=== PATIENT | male | born 1985 | race American Indian/Alaskan Native ===

== ENCOUNTER 2017-02-16 12:30 | Emergency (ER) | payer SELFPAY ==
--- NOTE | 2017-02-16 12:49 | Emergency Department Report ---
Chief Complaint: Pain General Stated Complaint: SICKLE CELL CRISIS Time Seen by Provider: 02/16/17 12:47 - HPI History of Present Illness: pt c/o sickle cell pain crisis. PT states he is from out of town and here for work training. pt states his pain feels like it usually does - ROS Review of Systems: - fever - chills - n/v - Exam Physical Exam: thin male, no acute distress steady gait MSE screening note: Focused history and physical exam performed. Due to findings the following was ordered: labs ED Disposition for MSE Condition: Stable
[2017-02-16 13:22] LABS: Hematocrit 41.5 % (35.5-45.6); Hemoglobin 13.9 gm/dl (11.8-15.2); Mean Corpuscular HGB Conc 33 % (32-34); Mean Corpuscular Volume 77 fl (84-94); Platelet Count 272 K/mm3 (140-440); Red Blood Count 5.37 M/mm3 (3.65-5.03); Red Cell Distribution Width 15.6 % (13.2-15.2); Reticulocyte % 2.08 % (0.78-2.58); White Blood Count 10.6 K/mm3 (4.5-11.0)
[2017-02-16 13:24] LABS: Mean Corpuscular Hemoglobin 26 pg (28-32)
[2017-02-16 13:36] LABS: Alanine Aminotransferase 9 units/L (7-56); Albumin 4.7 g/dL (3.9-5); Albumin/Globulin Ratio 1.6 %; Alkaline Phosphatase 70 units/L (35-129); Anion Gap 18 mmol/L; BUN/Creatinine Ratio 14.28; Blood Urea Nitrogen 10 mg/dL (9-20); Calcium 9.1 mg/dL (8.4-10.2); Carbon Dioxide 23 mmol/L (22-30); Chloride 102.3 mmol/L (98-107); Glucose 109 mg/dL (75-100); Lactate Dehydrogenase 179 units/L (91-180); Potassium 4.6 mmol/L (3.6-5.0); Sodium 139 mmol/L (137-145); Total Protein 7.7 g/dL (6.3-8.2)
[2017-02-16 14:31] LABS: Blastocytes % (Manual) 0 %; Diff Status Complete; Eosinophils % (Manual) 0 % (0.0-4.3); Hypochromasia 1+; Platelet Estimate Consistent w Auto; Poikilocytosis Few; Target Cells 1+
[2017-02-17 01:56] VITALS: BP 132/78
[2017-02-17] MEDS ORDERED: NACL 0.9% 1000 ML 1,000 ML IV ONE (02:05)
[2017-02-17] MEDS ORDERED: DILAUDID IV ONE ×2 (02:05→03:36)
--- NOTE | 2017-02-17 02:22 | Emergency Department Report ---
HPI - General Chief Complaint: Sickle Cell Crisis Time Seen by Provider: 02/16/17 12:47 - HPI HPI: This is a 31-year-old Afro[place] male presents to the emergency department with complaint of right leg pain from the knee to the hip that he says is a typical sickle cell pain for him. This is been going on for the past 2 days. He has not taken anything for symptoms prior to presentation. 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 He denies any swelling or color change to that area. He denies any chest pain, fever, shortness of breath, nausea, vomiting or diaphoresis. He denies tobacco or illicit drug use or abuse. ED Past Medical Hx - Past Medical History Previous Medical History?: Yes Hx Sickle Cell Disease: Yes - Surgical History Past Surgical History?: No - Social History Smoking Status: Current Every Day Smoker Substance Use Type: Prescribed - Medications Home Medications: Home Medications Medication Instructions Recorded Confirmed Last Taken Type HYDROcodone/APAP 5-325 [[place] 1 each PO Q6HR PRN #10 tablet 02/17/17 Unknown Rx 5/325] ED Review of Systems ROS: Stated complaint: SICKLE CELL CRISIS Other details as noted in HPI Comment: All other systems reviewed and negative Constitutional: denies: chills, fever Eyes: denies: eye pain, eye discharge, vision change ENT: denies: ear pain, throat pain Respiratory: denies: cough, shortness of breath, wheezing Cardiovascular: denies: chest pain, palpitations Gastrointestinal: denies: abdominal pain, nausea, diarrhea Genitourinary: denies: urgency, dysuria Musculoskeletal: arthralgia, myalgia Skin: denies: rash, lesions Neurological: denies: headache, weakness, paresthesias Physical Exam - Physical Exam Vital Signs: Vital Signs 02/16/17 02/16/17 02/17/17 12:47 17:12 01:55 Temperature 98.2 F 98.1 F Pulse Rate 69 69 59 L Respiratory 16 18 16 Rate Blood Pressure 109/77 Blood Pressure 113/78 132/78 [Right] O2 Sat by Pulse 100 100 99 Oximetry Physical Exam: GENERAL: The patient is well-developed well-nourished. HEENT: Normocephalic. Atraumatic. Extraocular motions are intact. Patient has moist mucous membranes. Pupils equal reactive to light bilaterally. NECK: Supple. Trachea is mid line. CHEST/LUNGS: Clear to auscultation. There is no respiratory distress noted. HEART/CARDIOVASCULAR: Regular. There is no tachycardia. There is no gallop rub or murmur. ABDOMEN: Abdomen is soft, nontender. Patient has normal bowel sounds. There is no abdominal distention. SKIN: Skin is warm and dry. NEURO: The patient is awake, alert, and oriented. The patient is cooperative. The patient has no focal neurologic deficits. The patient has normal speech and gait. MUSCULOSKELETAL: There is no tenderness to palpation or deformity. There is no limitation range of motion. There is no evidence of acute injury. Muscle strength 5 out of 5 for upper and lower extremities bilaterally. ED Course Vital Signs 02/16/17 02/16/17 02/17/17 12:47 17:12 01:55 Temperature 98.2 F 98.1 F Pulse Rate 69 69 59 L Respiratory 16 18 16 Rate Blood Pressure 109/77 Blood Pressure 113/78 132/78 [Right] O2 Sat by Pulse 100 100 99 Oximetry ED Medical Decision Making - Lab Data Result diagrams: 02/16/17 13:05 02/16/17 13:05 - Medical Decision Making 31-year-old male with a history of sickle cell presents with right thigh/leg pain for the past 2 days that he says is a sickle cell pain crisis. Pain is not reproducible to palpation. There is no swelling to the area. Labs are unremarkable. No significant anemia and low reticulocyte count. Metabolic panel does not show any abnormalities as well. It may be that the patient does have typical right thigh and or leg sickle cell pain but he is also a truck assembler and a DVT needs to be ruled out. He has been set up for an outpatient venous Doppler study later this morning. If positive he'll be redirected to the emergency department and if negative he has been encouraged to see his PCP. He does not have any chest pain, shortness of breath, fever and there is low suspicion for any chest crisis or any other, complications of sickle cell disease at this time. - Differential Diagnosis sickle cell pain crisis, DVT, fibromyalgia Critical Care Time: No Critical care attestation.: If time is entered above; I have spent that time in minutes in the direct care of this critically ill patient, excluding procedure time. ED Disposition Clinical Impression: Sickle cell anemia with pain, Pain in right leg Disposition: DC-01 TO HOME OR SELFCARE Is pt being admited?: No Condition: Stable Instructions: Sickle Cell Crisis (ED), Arthralgia (ED) Additional Instructions: These follow-up with a primary care physician in the next few days. Return to the emergency department with any worsening of your symptoms or any acute distress. You've been prescribed a medication that is sedating. Therefore this medication cannot be mixed with alcohol, or taken prior to driving, working, or being responsible for children. I have written for you in order to return to the outpatient imaging portion of the hospital in the morning to have the right lower extremity Doppler ultrasound to rule out a blood clot as the source of your leg pain. Call the number provided to make an appointment. If it is positive, he will be redirected to the emergency department. If negative, he should follow-up with your primary care physician. Prescriptions: HYDROcodone/APAP 5-325 [[place] 5/325] 1 each PO Q6HR PRN #10 tablet PRN Reason: Pain Referrals: PRIMARY CARE [Primary Care Provider] - 3-5 Days Time of Disposition: 04:26
== END 2017-02-17 04:47 | disposition home or self-care (01) ==
LOC: ED 12:30
DX: D57.1 Sickle-cell disease without crisis (principal); M79.604 Pain in right leg; F17.210 Nicotine dependence, cigarettes, uncomplicated
CPT/HCPCS: 36415; 80053; 83615; 85007; 85025; 85045; 96361; 96374; 96376; 99283; J1170; J7030

== ENCOUNTER 2017-02-18 13:13 | Emergency (ER) | payer SELFPAY ==
[2017-02-18 14:27] LABS: Basophils % (Auto) 0.5 % (0.0-1.8); Eosinophils % (Auto) 0.9 % (0.0-4.3); Hematocrit 40.8 % (35.5-45.6); Hemoglobin 13.7 gm/dl (11.8-15.2); Mean Corpuscular HGB Conc 34 % (32-34); Mean Corpuscular Volume 77 fl (84-94); Platelet Count 249 K/mm3 (140-440); Red Blood Count 5.29 M/mm3 (3.65-5.03); Red Cell Distribution Width 15.8 % (13.2-15.2); Reticulocyte % 2.15 % (0.78-2.58); White Blood Count 5.9 K/mm3 (4.5-11.0)
[2017-02-18 14:28] LABS: Mean Corpuscular Hemoglobin 26 pg (28-32)
[2017-02-18] MEDS ORDERED: D5NS 0.2% 1,000 ML IV SCH (15:00)
[2017-02-18] MEDS ORDERED: DILAUDID IV ONE ×2 (20:34→20:58)
[2017-02-18] MEDS ORDERED: ZOFRAN IV ONE (20:34)
--- NOTE | 2017-02-18 20:40 | Emergency Department Report ---
HPI - General Chief Complaint: Sickle Cell Crisis Time Seen by Provider: 02/18/17 20:34 - HPI HPI: The patient is a 31-year-old male with a history of sickle cell disease, presents for evaluation of leg pain. The patient reports 3 days of bilateral anterior upper leg pain, aching in quality, 10/10 in severity, constant since onset, exacerbated with movement of the upper legs. He states that his symptoms are consistent with previous sickle cell pain attacks. He denies trauma or injury to the legs, fever, paresthesias, motor deficit, leg swelling or bruising, redness, chills, night sweats. ED Past Medical Hx - Past Medical History Previous Medical History?: Yes Hx Sickle Cell Disease: Yes - Surgical History Past Surgical History?: No - Social History Smoking Status: Current Every Day Smoker Substance Use Type: Prescribed - Medications Home Medications: Home Medications Medication Instructions Recorded Confirmed Last Taken Type HYDROcodone/APAP 5-325 [[place] 1 each PO Q6HR PRN #10 tablet 02/17/17 Unknown Rx 5/325] ED Review of Systems ROS: Stated complaint: SICKLE CELL CRISIS IN RIGHT LEG Other details as noted in HPI Constitutional: denies: fever ENT: denies: throat or neck pain Respiratory: denies: cough, shortness of breath Cardiovascular: denies: chest pain Endocrine: denies unexplained weight loss or gain Gastrointestinal: denies: abdominal pain, nausea Genitourinary: denies: dysuria Musculoskeletal: reports leg pain Skin: denies: rash Neurological: denies: headache Hematological/Lymphatic: denies: easy bleeding or easy bruising Psych: denies sadness or hopelessness Physical Exam - Physical Exam Vital Signs: Vital Signs 02/18/17 02/18/17 02/18/17 14:10 20:02 20:03 Temperature 98.7 F Pulse Rate 74 99 H 68 Respiratory 20 12 Rate Blood Pressure 133/95 133/79 O2 Sat by Pulse 100 Oximetry 02/18/17 02/18/17 02/18/17 20:04 20:06 20:18 Temperature 98.4 F Pulse Rate 62 62 Respiratory 13 12 Rate Blood Pressure 133/79 133/79 O2 Sat by Pulse 100 Oximetry Physical Exam: General: well-nourished, well-developed, no acute distress Head: Normocephalic, atraumatic Eyes: normal sclera ENT: Mucous membranes are pale and dry Neck: trachea midline, neck supple, No neck stiffness, no cervical adenopathy Respiratory: Breath sounds equal bilaterally, no wheezing, rales, or rhonchi Cardio: S1 and S2 present, no murmurs, rubs, gallops, capillary refill is delayed Abdomen: Normoactive bowel sounds, soft abdomen, no rigidity, no guarding or rebound tenderness Musc: Bilateral quadriceps tenderness to palpation present Skin: No rash Neuro: no facial drooping, normal speech Psych: Normal affect ED Course Vital Signs 02/18/17 02/18/17 02/18/17 14:10 20:02 20:03 Temperature 98.7 F Pulse Rate 74 99 H 68 Respiratory 20 12 Rate Blood Pressure 133/95 133/79 O2 Sat by Pulse 100 Oximetry 02/18/17 02/18/17 02/18/17 20:04 20:06 20:18 Temperature 98.4 F Pulse Rate 62 62 Respiratory 13 12 Rate Blood Pressure 133/79 133/79 O2 Sat by Pulse 100 Oximetry ED Medical Decision Making - Lab Data Result diagrams: 02/18/17 14:17 - Medical Decision Making The patient was seen and examined by myself. The patient is placed on a air sampling and monitoring and continuous pulse ox. On initial evaluation, the patient was found to be in no distress. No findings on exam concerning for cauda equina syndrome, spinal stenosis, epidural abscess, or other emergent etiology of back pain. As the patient has no midline tenderness on exam, no neuro deficits, and no findings concerning for emergent etiology of their back pain, imaging will not be obtained at this time. IV access is established and the patient is given fluid resuscitation, Zofran, and multiple doses of dilaudid for their pain. Lab results reveal elevated reticulocyte count, and a stable hemoglobin level at patient baseline. Lab results otherwise are not concerning. The patient was reevaluated and reported that their pain was significantly improved. The patient is stable for discharge with outpatient follow-up. The patient is given follow-up and return instructions. The patient expressed understanding and agreed with the plan. The patient is discharged in stable condition. Critical care attestation.: If time is entered above; I have spent that time in minutes in the direct care of this critically ill patient, excluding procedure time. ED Disposition Clinical Impression: Sickle cell anemia with pain, Bilateral leg pain, Dehydration Disposition: DC-01 TO HOME OR SELFCARE Is pt being admited?: No Does the pt Need Aspirin: No Condition: Stable Instructions: Sickle Cell Crisis (ED), Musculoskeletal Pain (ED) Referrals: PRIMARY CARE, [Primary Care Provider] - 3-5 Days Time of Disposition: 20:37
[2017-02-18 21:58] VITALS: BP 124/72
== END 2017-02-18 21:57 | disposition home or self-care (01) ==
LOC: ED 13:13
DX: D57.1 Sickle-cell disease without crisis (principal); E86.0 Dehydration; M79.605 Pain in left leg; M79.604 Pain in right leg; F17.210 Nicotine dependence, cigarettes, uncomplicated
CPT/HCPCS: 36415; 85025; 85045; 96374; 96375; 96376; 99284; J1170; J2405